=== PATIENT | female | born 1975 | race Caucasian/White ===

== ENCOUNTER → 2016-05-31 | Outpatient (CLI) | payer OTHER ==
[~2016-05-31] MED LIST: BCPILLS PO; BND25X PO; CLRD24 PO; MULT-506 PO
[2016-05-31 16:50] LABS: BASO % 0.5 %; BASO ABS # 0.03 K/uL (0-0.2); COMPLETE YES; EOS % 2.4 %; HEMATOCRIT 43.4 % (37-47); IG% 0.2 %; LYMPH % 20.3 %; LYMPH ABS # 1.26 K/uL (1.2-3.4); MEAN CELL VOLUME 93.9 fL (80-100); MEAN CORPUSCULAR HEMOGLOBIN 31.6 pg (25-34); MEAN CORPUSCULAR HGB CONC 33.6 g/dl (32-36); MEAN PLATELET VOLUME 10.2 fL (7.4-10.4); MONO % 7.4 %; NEUT % 69.2 %; PLATELET COUNT 274 K/uL (130-400); RED BLOOD COUNT 4.62 M/uL (4.2-5.4); WHITE BLOOD COUNT 6.22 K/uL (4.8-10.8)
[2016-05-31 17:15] LABS: ALKALINE PHOSPHATASE 48 U/L (45-117); ALT/SGPT 19 U/L (12-78); AST/SGOT 17 U/L (15-37); BLOOD UREA NITROGEN 13 mg/dl (7-18); BUN/CREATININE RATIO 17.8 (10-20); CALCIUM 8.7 mg/dl (8.5-10.1); CARBON DIOXIDE 26 mmol/L (21-32); CHLORIDE 105 mmol/L (98-107); CREATININE 0.74 mg/dl (0.60-1.20); GLUCOSE 65 mg/dl (70-99); POTASSIUM 3.5 mmol/L (3.5-5.1); SODIUM 140 mmol/L (136-145)
[2016-05-31 17:16] LABS: ALB/GLOB RATIO 0.9 (0.9-2)
== END | disposition home or self-care (01) ==
LOC: C.LABBFT 11:37
PROVIDERS: ATTEND Internal Medicine Geriatric Medicine
DX: R19.7 Diarrhea, unspecified (principal)

== ENCOUNTER → 2016-06-01 | Outpatient (CLI) | payer OTHER ==
[2016-06-05 22:19] LABS: O&P SOURCE OTHER-STOOL
== END | disposition home or self-care (01) ==
LOC: C.LABSPEC 12:42
PROVIDERS: ATTEND Internal Medicine
DX: R19.7 Diarrhea, unspecified (principal)

== ENCOUNTER → 2016-08-04 | Outpatient (CLI) | payer OTHER ==
--- NOTE | 2016-08-04 09:38 | DIAGNOSTIC IMAGING REPORT ---
RIGHT SHOULDER 3 VIEWS CLINICAL HISTORY: Right shoulder pain. FINDINGS: 3 views of the right shoulder are obtained. No prior studies are available for comparison at the time of dictation. The skeletal structures are well mineralized. No fracture or dislocation is seen. The glenohumeral and acromioclavicular joints are well-maintained. The overlying soft tissues are within normal limits. Imaged right lung parenchyma appears clear. IMPRESSION: Unremarkable radiographic assessment of the right shoulder. Electronically signed by: Eros Moses M.D. 08/04/2016 9:36 AM Dictated Date/Time: 08/04/2016 9:34 AM
== END | disposition home or self-care (01) ==
LOC: C.RAD1850 09:25
PROVIDERS: ATTEND Internal Medicine
DX: M25.511 Pain in right shoulder (principal)

== ENCOUNTER → 2016-10-10 | Outpatient (CLI) | payer OTHER ==
--- NOTE | 2016-10-10 14:37 | DIAGNOSTIC IMAGING REPORT ---
MRI right shoulder RIGHT UPPER EXT JOINT WITHOUT CLINICAL HISTORY: M25.511 Pain in joint of right shoulder right [id number] Right pain TECHNIQUE: Multi axial MRI acquisition COMPARISON STUDY: None FINDINGS: Signal characteristics of the osseous structures are unremarkable. There is a trace amount of edematous change about the biceps tendon. Mild biceps tendinitis is present. Labrum is unremarkable. Rotator cuff is intact. There are findings of mild supraspinatus tendinitis. The acromioclavicular joint appears to be intact. There is no evidence for impingement. The articular services the glenohumeral joint are unremarkable. IMPRESSION: 1. Mild biceps tendinitis. 2. Mild supraspinatus tendinitis. 3. No evidence for rotator cuff tear. Electronically signed by: Elver Villarreal M.D. 10/10/2016 2:36 PM Dictated Date/Time: 10/10/2016 2:32 PM
== END | disposition home or self-care (01) ==
LOC: C.MRI 13:32
PROVIDERS: ATTEND Physician Assistant Medical
DX: M75.21 Bicipital tendinitis, right shoulder (principal)

== ENCOUNTER → 2017-07-31 | Outpatient (CLI) | payer OTHER | END | disposition home or self-care (01) | LOC: C.PAPS 15:35 | PROVIDERS: ATTEND Obstetrics & Gynecology | DX: Z01.419 Encounter for gynecological examination (general) (routine) without abnormal findings (principal) ==